=== PATIENT | female | born 1975 | race Caucasian/White ===

== ENCOUNTER 2021-11-06 18:21 | Emergency (ER) | payer BC ==
[2021-11-06 18:32] VITALS: BP 129/82; PULSE 105; TEMP 97.3; BMI 29.2
[2021-11-06 20:02] LABS: BASO % 0.6 % (0-2.0); EOS % 1.7 % (0-4.5); HEMATOCRIT 43.9 % (32.4-45.2); HEMOGLOBIN 14.5 GM/dL (10.7-15.3); LYMPH % 21.7 % (8-40); MEAN CELL VOLUME 93.9 fl (80-96); MEAN PLT VOLUME 7.4 fl (7.5-11.1); MONO % 9.6 % (3.8-10.2); NEUT % 66.4 % (42.8-82.8); PLATELET COUNT 420 10^3/uL (134-434); RBC 4.68 M/mm3 (3.60-5.2); RDW 14.4 % (11.6-15.6); WHITE BLOOD COUNT 9.4 K/mm3 (4.0-10.0)
[2021-11-06 20:23] LABS: CHLORIDE 107 mmol/L (98-107); SODIUM 137 mmol/L (136-145)
[2021-11-06 20:31] LABS: CALCIUM 9.2 mg/dL (8.5-10.1); CO2 25 mmol/L (21-32); CREATININE 0.7 mg/dL (0.55-1.3); SGPT/ALT 23 U/L (13-61)
[2021-11-06 20:32] LABS: GLUCOSE,RANDOM 91 mg/dL (74-106)
[2021-11-06 20:33] LABS: BILIRUBIN,TOTAL 0.8 mg/dL (0.2-1)
[2021-11-06 20:34] LABS: ALK PHOS 83 U/L (45-117)
[2021-11-06 21:41] LABS: BLOOD UREA NITROGEN 11.5 mg/dL (7-18)
[2021-11-06 21:49] LABS: SGOT/AST 48 U/L (15-37)
[2021-11-06 21:50] LABS: ANION GAP 5 MMOL/L (8-16)
== END 2021-11-06 22:31 | disposition home or self-care (01) ==
LOC: JER 18:21
DX: R07.89 Other chest pain (principal)
CPT/HCPCS: 36415; 71046-TC-FY; 80053; 84484; 85025; 85379; 93005; 93010; 99285-25

== ENCOUNTER 2022-02-15 10:28 | Inpatient (IN) | payer BC ==
[2022-02-15] MEDS ORDERED: SODIUM CHLORIDE 0.9% 500 ML INFUS.BAG IV ONE (11:33)
[2022-02-15] MEDS ORDERED: KETOROLAC TROMETHAMINE 30 MG/1 ML VIAL IVPUSH ONE (11:33)
[2022-02-15] MEDS ORDERED: ONDANSETRON 4 MG/2 ML VIAL IVPUSH ONE (11:33)
[2022-02-15] MEDS ORDERED: KETOROLAC TROMETHAMINE 30 MG/1 ML VIAL ONE (11:52)
[2022-02-15] MEDS ORDERED: ONDANSETRON 4 MG/2 ML VIAL ONE (11:52)
[2022-02-15 12:04] LABS: HEMATOCRIT 42.9 % (32.4-45.2); HEMOGLOBIN 14.4 GM/dL (10.7-15.3); MCH 31.2 pg (25.7-33.7); MCHC 33.5 g/dl (32.0-36.0); MEAN CELL VOLUME 93.2 fl (80-96); MEAN PLT VOLUME 7.1 fl (7.5-11.1); PLATELET COUNT 402 10^3/uL (134-434); RDW 13.7 % (11.6-15.6); WHITE BLOOD COUNT 22.9 K/mm3 (4.0-10.0)
[2022-02-15 12:30] LABS: ALBUMIN 4.2 g/dl (3.4-5.0); BLOOD UREA NITROGEN 11.7 mg/dL (7-18)
[2022-02-15 12:33] LABS: CREATININE 0.7 mg/dL (0.55-1.3)
[2022-02-15 12:34] LABS: BILIRUBIN,TOTAL 1.2 mg/dL (0.2-1); TOT PROT 7.9 g/dl (6.4-8.2)
[2022-02-15 12:48] LABS: EPI CELLS 23 /uL (0-25.1); HYALINE CASTS 1 /uL (0-3.1); PH,URINE 5.5 (5.0-8.0); URINE APPEARANCE CLEAR; URINE BACTERIA 652 /uL (0-1359); URINE BILIRUBIN NEGATIVE (NEGATIVE); URINE COLOR YELLOW; URINE GLUCOSE (UA) NEGATIVE (NEGATIVE); URINE KETONE 1+ (NEGATIVE); URINE LEUK ESTERASE 2+ (NEGATIVE); URINE NITRITE NEGATIVE (NEGATIVE); URINE PROTEIN NEGATIVE (NEGATIVE); URINE RBC 8 /uL (0-23.9); URINE UROBILINOGEN 0.2 mg/dL (0.2-1.0); URINE WBC 49 /uL (0-25.8)
[2022-02-15 13:01] LABS: ANISOCYTOSIS 0; MACROCYTOSIS 0
[2022-02-15 13:11] LABS: YEAST NEGATIVE (NEGATIVE)
[2022-02-15] MEDS ORDERED: CLINDAMYCIN 900 MG PREMIX IVPB 900 MG/50 ML BAG IVPB ONE ×2 (17:29→17:46)
[2022-02-15] MEDS ORDERED: GENTAMICIN 80 MG PREMIXED IVPB 80 MG/100 ML BAG IVPB ONE ×2 (17:30→17:47)
[2022-02-15 19:30] LABS: INR 1.39 (0.83-1.09)
[2022-02-15] MEDS ORDERED: ONDANSETRON 4 MG/2 ML VIAL IVPUSH PRN (20:28)
[2022-02-15] MEDS ORDERED: KETOROLAC TROMETHAMINE 15 MG/ML VIAL IVPUSH PRN (22:43)
[2022-02-16] MEDS: SODIUM CHLORIDE 1,000 ML IV SCH ×4 (00:06→21:22)
[2022-02-16 00:30] VITALS: BMI 29.4
[2022-02-16] MEDS: CLINDAMYCIN 900 MG PREMIX IVPB 900 MG/50 ML BAG IVPB SCH ×3 (02:23→17:21)
[2022-02-16] MEDS: GENTAMICIN 80 MG PREMIXED IVPB 80 MG/100 ML BAG IVPB SCH ×2 (03:07→11:17)
[2022-02-16 08:27] LABS: BASO % 0.8 % (0-2.0); EOS % 1.3 % (0-4.5); HEMATOCRIT 37.6 % (32.4-45.2); HEMOGLOBIN 12.4 GM/dL (10.7-15.3); LYMPH % 12.5 % (8-40); MCH 31.2 pg (25.7-33.7); MCHC 32.9 g/dl (32.0-36.0); MEAN CELL VOLUME 94.8 fl (80-96); MEAN PLT VOLUME 7.6 fl (7.5-11.1); MONO % 7.3 % (3.8-10.2); NEUT % 78.1 % (42.8-82.8); PLATELET COUNT 373 10^3/uL (134-434); RBC 3.97 M/mm3 (3.60-5.2); RDW 13.7 % (11.6-15.6); WHITE BLOOD COUNT 10.8 K/mm3 (4.0-10.0)
[2022-02-16 08:43] LABS: CALCIUM 7.7 mg/dL (8.5-10.1); MAGNESIUM 2.2 mg/dL (1.8-2.4)
[2022-02-16 08:44] LABS: BLOOD UREA NITROGEN 10.8 mg/dL (7-18)
[2022-02-16 08:47] LABS: CREATININE 0.7 mg/dL (0.55-1.3); PHOSPHOROUS 2.6 mg/dL (2.5-4.9)
[2022-02-16 08:48] LABS: BILIRUBIN,TOTAL 1.2 mg/dL (0.2-1); TOT PROT 6.5 g/dl (6.4-8.2)
[2022-02-16 08:54] LABS: ALBUMIN 3.4 g/dl (3.4-5.0)
[2022-02-16] MEDS: ENOXAPARIN NA (PORCINE) 40 MG/0.4 ML DISP.SYRIN SQ SCH (10:35)
[2022-02-16] MEDS ORDERED: CALCIUM GLUC IN NACL, ISO-OSM 1 GM/50 ML BAG IVPB ONE (12:00)
[2022-02-16] MEDS ORDERED: AZTREONAM 1 GM VIAL (RESTRICTED TO ID) ONE (17:09)
[2022-02-16] MEDS ORDERED: DEXTROSE 5%-WATER - 50 ML IVPB ONE (17:09)
[2022-02-16] MEDS: AZTREONAM 1 GM in DEXTROSE 5%-WATER - 50 ML IVPB SCH (18:21)
[2022-02-16] MEDS ORDERED: DEXTROSE 5%-WATER 100 ML IVPB ONE (21:19)
[2022-02-16] MEDS ORDERED: DOXYCYCLINE HYCLATE 100 MG VIAL ONE (21:19)
[2022-02-16] MEDS: DOXYCYCLINE INJECTION 100 MG in DEXTROSE 5%-WATER 100 ML IVPB SCH (21:22)
[2022-02-17] MEDS ORDERED: AZTREONAM 1 GM VIAL (RESTRICTED TO ID) ONE ×3 (00:43→17:43)
[2022-02-17] MEDS ORDERED: DEXTROSE 5%-WATER - 50 ML IVPB ONE ×3 (00:44→17:43)
[2022-02-17] MEDS: AZTREONAM 1 GM in DEXTROSE 5%-WATER - 50 ML IVPB SCH ×3 (01:52→17:46)
[2022-02-17] MEDS: CLINDAMYCIN 900 MG PREMIX IVPB 900 MG/50 ML BAG IVPB SCH ×3 (02:37→18:54)
[2022-02-17 08:12] LABS: EOS % 2.2 % (0-4.5); HEMOGLOBIN 12.6 GM/dL (10.7-15.3); LYMPH % 23.6 % (8-40); MCH 31.1 pg (25.7-33.7); MCHC 33.2 g/dl (32.0-36.0); MEAN CELL VOLUME 93.6 fl (80-96); MEAN PLT VOLUME 7.3 fl (7.5-11.1); MONO % 10.5 % (3.8-10.2); NEUT % 62.7 % (42.8-82.8); PLATELET COUNT 440 10^3/uL (134-434); RBC 4.06 M/mm3 (3.60-5.2); RDW 13.8 % (11.6-15.6); WHITE BLOOD COUNT 6.3 K/mm3 (4.0-10.0)
[2022-02-17 08:28] LABS: CALCIUM 8.2 mg/dL (8.5-10.1)
[2022-02-17 08:29] LABS: ALBUMIN 3.5 g/dl (3.4-5.0); BLOOD UREA NITROGEN 8.4 mg/dL (7-18)
[2022-02-17 08:32] LABS: CREATININE 0.7 mg/dL (0.55-1.3)
[2022-02-17 08:33] LABS: BILIRUBIN,TOTAL 0.8 mg/dL (0.2-1)
[2022-02-17] MEDS ORDERED: DEXTROSE 5%-WATER 100 ML IVPB ONE ×2 (09:30→21:05)
[2022-02-17] MEDS ORDERED: DOXYCYCLINE HYCLATE 100 MG VIAL ONE ×2 (09:30→21:05)
[2022-02-17 10:40] LABS: HIV INTERPRETATION NEGATIVE (NEGATIVE)
[2022-02-17] MEDS: DOXYCYCLINE INJECTION 100 MG in DEXTROSE 5%-WATER 100 ML IVPB SCH ×2 (11:49→21:35)
[2022-02-18] MEDS ORDERED: DEXTROSE 5%-WATER - 50 ML IVPB ONE ×2 (01:02→11:11)
[2022-02-18] MEDS ORDERED: AZTREONAM 1 GM VIAL (RESTRICTED TO ID) ONE ×2 (01:02→11:11)
[2022-02-18] MEDS: AZTREONAM 1 GM in DEXTROSE 5%-WATER - 50 ML IVPB SCH ×2 (01:53→11:16)
[2022-02-18] MEDS: CLINDAMYCIN 900 MG PREMIX IVPB 900 MG/50 ML BAG IVPB SCH ×2 (02:38→12:56)
[2022-02-18 08:34] LABS: BASO % 0.8 % (0-2.0); EOS % 1.9 % (0-4.5); HEMATOCRIT 36.6 % (32.4-45.2); HEMOGLOBIN 12.4 GM/dL (10.7-15.3); LYMPH % 16.3 % (8-40); MCH 31.5 pg (25.7-33.7); MCHC 33.8 g/dl (32.0-36.0); MEAN CELL VOLUME 93.1 fl (80-96); MONO % 8.8 % (3.8-10.2); NEUT % 72.2 % (42.8-82.8); PLATELET COUNT 396 10^3/uL (134-434); RBC 3.93 M/mm3 (3.60-5.2); RDW 13.9 % (11.6-15.6); WHITE BLOOD COUNT 7.9 K/mm3 (4.0-10.0)
[2022-02-18 09:37] LABS: ALBUMIN 3.4 g/dl (3.4-5.0); BLOOD UREA NITROGEN 15.6 mg/dL (7-18); CALCIUM 8.3 mg/dL (8.5-10.1)
[2022-02-18 09:38] LABS: CREATININE 0.7 mg/dL (0.55-1.3)
[2022-02-18 09:40] LABS: BILIRUBIN,TOTAL 0.5 mg/dL (0.2-1); TOT PROT 6.5 g/dl (6.4-8.2)
[2022-02-18] MEDS: ENOXAPARIN NA (PORCINE) 40 MG/0.4 ML DISP.SYRIN SQ SCH (11:16)
[2022-02-18] MEDS ORDERED: DOXYCYCLINE HYCLATE 100 MG VIAL ONE (13:27)
[2022-02-18] MEDS ORDERED: DEXTROSE 5%-WATER 100 ML IVPB ONE (13:27)
[2022-02-18 13:53] VITALS: BP 135/80; PULSE 84; TEMP 98.9
[2022-02-18] MEDS: DOXYCYCLINE INJECTION 100 MG in DEXTROSE 5%-WATER 100 ML IVPB SCH (14:07)
== END 2022-02-18 17:22 | disposition home or self-care (01) | DRG 761 ==
LOC: JER 10:28 → JERBED 18:52 → J5S 23:31
PROVIDERS: ADMIT Internal Medicine; ATTEND Internal Medicine
DX: N88.8 Other specified noninflammatory disorders of cervix uteri (principal); N83.291 Other ovarian cyst, right side; N71.9 Inflammatory disease of uterus, unspecified; D72.829 Elevated white blood cell count, unspecified; K21.9 Gastro-esophageal reflux disease without esophagitis
CPT/HCPCS: 0241U-QW; 36415; 74177-TC; 76705-TC; 76830-TC; 80053; 80307; 81003; 82550; 83036; 83690; 83735; 84100; 84703; 85025; 85610; 86618; 86705; 86803; 86850; 86900; 86901; 87040; 87070; 87110; 87205; 87340; 87389; 87491; 87517; 87591; 87807; 88305-TC; 93005; 93010; 99285-25; C9803-CS; Q9967; U0003; U0005